=== PATIENT | female | born 1950 | race Two or more races ===

== ENCOUNTER 2019-03-27 21:42 | Emergency (ER) | payer OTHER ==
[~2019-03-27] VITALS: Ht 165.1 cm; Wt 96.6 kg
[2019-03-27] MEDS ORDERED: SINGULAIR10 MG (21:51)
[2019-03-27] MEDS ORDERED: ALBUTEROL2.5 MG/3 M (21:51)
[2019-03-28] MEDS ORDERED: AMOX1TAB5 PO (02:52)
[2019-03-28] MEDS ORDERED: CLARITIN10 MG PO (02:52)
[2019-03-28] MEDS ORDERED: TUSNEL LIQUID178 ML PO (02:52)
[2019-03-28] MEDS ORDERED: MEDROLPACK PO (02:52)
== END 2019-03-28 03:00 | disposition home or self-care (01) ==
LOC: ER 21:42
DX: J45.901 Unspecified asthma with (acute) exacerbation (principal)

== ENCOUNTER 2021-06-05 09:00 | Outpatient (CLI) | payer OTHER ==
[~2021-06-05 09:00] MED LIST: ALBUTEROL2.5 MG/3 M; AMOX1TAB5 PO; CLARITIN10 MG PO; MEDROLPACK PO; SINGULAIR10 MG; TUSNEL LIQUID178 ML PO
== END 2021-06-05 09:06 | disposition home or self-care (01) ==
LOC: RX STUDY 09:00
PROVIDERS: ATTEND Internal Medicine Gastroenterology
DX: K31.89 Other diseases of stomach and duodenum (principal); K76.0 Fatty (change of) liver, not elsewhere classified; K31.84 Gastroparesis; R07.2 Precordial pain

== ENCOUNTER 2021-08-05 20:27 | Emergency (ER) | payer OTHER ==
[~2021-08-05] VITALS: Ht 165.1 cm; Wt 88.0 kg
== END 2021-08-06 04:53 ==
LOC: ER 20:27
DX: J45.901 Unspecified asthma with (acute) exacerbation (principal); Z20.822 Contact with and (suspected) exposure to COVID-19

== ENCOUNTER 2021-11-24 21:36 | Emergency (ER) | payer OTHER ==
[~2021-11-24] VITALS: Ht 165.1 cm; Wt 89.4 kg
== END 2021-11-24 23:38 | disposition home or self-care (01) ==
LOC: ER 21:36
DX: J45.901 Unspecified asthma with (acute) exacerbation (principal)

== ENCOUNTER 2022-05-03 11:31 | Emergency (ER) | payer OTHER ==
[~2022-05-03] VITALS: Ht 167.6 cm; Wt 89.4 kg
== END 2022-05-03 17:57 | disposition home or self-care (01) ==
LOC: ER 11:31
DX: K52.9 Noninfective gastroenteritis and colitis, unspecified (principal); K29.70 Gastritis, unspecified, without bleeding; K31.84 Gastroparesis

== ENCOUNTER 2022-05-29 07:03 | Outpatient (CLI) | payer OTHER | END 2022-05-29 07:04 | disposition home or self-care (01) | LOC: NUCLEAR 07:03 | PROVIDERS: ATTEND Specialist | DX: I70.0 Atherosclerosis of aorta (principal); I25.9 Chronic ischemic heart disease, unspecified; E78.5 Hyperlipidemia, unspecified | CPT/HCPCS: 78452; 93017; A9500 ==

== ENCOUNTER 2022-05-29 07:17 | Outpatient (CLI) | payer OTHER | END 2022-05-29 07:23 | disposition home or self-care (01) | LOC: LAB 07:17 | DX: U07.1 COVID-19 (principal); B34.1 Enterovirus infection, unspecified ==

== ENCOUNTER 2022-08-22 06:46 | Emergency (ER) | payer OTHER ==
[~2022-08-22] VITALS: Ht 165.1 cm; Wt 85.7 kg
[2022-08-22] MEDS ORDERED: ACIPHEX20 MG (06:56)
== END 2022-08-22 14:52 | disposition home or self-care (01) ==
LOC: ER 06:46
DX: K31.84 Gastroparesis (principal); R10.84 Generalized abdominal pain; Z20.822 Contact with and (suspected) exposure to COVID-19

== ENCOUNTER → 2022-10-16 | Outpatient (CLI) | payer OTHER ==
[~2022-10-16] MED LIST changes: +ACIPHEX20 MG
== END | disposition home or self-care (01) ==
LOC: SONOGRAMA 07:33
PROVIDERS: ATTEND Internal Medicine Gastroenterology
DX: K57.30 Diverticulosis of large intestine without perforation or abscess without bleeding (principal); K64.0 First degree hemorrhoids; K29.70 Gastritis, unspecified, without bleeding; R16.0 Hepatomegaly, not elsewhere classified; K76.0 Fatty (change of) liver, not elsewhere classified; E66.01 Morbid (severe) obesity due to excess calories; R11.0 Nausea; R10.30 Lower abdominal pain, unspecified

== ENCOUNTER 2024-05-11 04:10 | Day surgery (SDC) | payer OTHER ==
[2024-05-05 07:55] VITALS: BP 108/76
[2024-05-05 08:34] LABS: HEMATOCRIT 42.3 % (36.0-45.00); HEMOGLOBIN 13.8 g/dL (12.0-15.00); MEAN CELL VOLUME 88.8 fL (80.00-100.00); MEAN CORPUSCULAR HEMOGLOBIN 28.9 pg (27.00-32.0); MEAN CORPUSCULAR HGB CONC 32.5 g/dl (32.0-36.0); PLATELET COUNT 135 K/uL (150-450); RED BLOOD COUNT 4.76 M/uL (4.00-6.00); RED CELL DISTRIBUTION WIDTH 14.1 % (11.5-14.5)
[2024-05-05 08:41] LABS: PH,URINE 5.5 (5.0-8.0); URINE APPEARANCE Clear; URINE BILIRRUBIN Negative (NEGATIVE); URINE BLOOD Negative; URINE COLOR Yellow; URINE GLUCOSE Negative (NEGATIVE); URINE KETONE Negative (NEGATIVE); URINE LEUKOCYTE Negative; URINE NITRATE Negative; URINE PROTEIN Negative (NEGATIVE)
[2024-05-05 08:45] LABS: URINE BACTERIA 653.5 uL (0.0-1933); URINE RBC 9.7 uL (0.0-20.8); URINE WBC 4.1 uL (0.0-23.2)
[2024-05-05 08:56] LABS: PARTIAL THROMBOPLASTIN TIME 27.1 SECONDS (22.0-34.0); PROTHROMBIN TIME 10.9 SECONDS (9.0-11.5)
[2024-05-05 09:27] LABS: ALBUMIN 3.7 gm/dL (3.4-5.0); BILIRUBIN TOTAL 0.35 mg/dL (0.3-1.2); CALCIUM 9.6 mg/dL (8.5-10.1); CREATININE SERUM 0.78 mg/dL (0.55-1.02); GFR 72.6; GLOBULINA 3.3 G/DL (2.4-3.5); POTASSIUM 4.46 mEq/L (3.5-5.1)
[2024-05-05 09:30] LABS: URINE CAST 0.14 uL (0.0-1.40)
[~2024-05-11] VITALS: Ht 165.1 cm; Wt 86.2 kg
[~2024-05-11 04:10] MED LIST changes: +ACIPHEX20 MG PO; +BREO ELLIPTA I1 EACH IH; +HORIZANT300 MG PO; +MYRBETRIQ50 MG PO; +THEOPHYLLINE A300 M1 PO; +ZOFRAN8 MG PO
[2024-05-11] MEDS ORDERED: CEFAZOLIN SODIUM 1,000 MG VIAL IV ONE (07:45)
[2024-05-11] MEDS ORDERED: POVIDONE-IODINE 118 ML BOTT TOP ONE (07:45)
[2024-05-11] MEDS ORDERED: NAPROXEN500 MG PO (09:19)
[2024-05-11] MEDS ORDERED: MONODOX100 MG PO (09:19)
== END 2024-05-11 12:00 | disposition home or self-care (01) ==
LOC: CIR.AMB 04:10
PROVIDERS: ATTEND Obstetrics & Gynecology
DX: D25.0 Submucous leiomyoma of uterus (principal); N95.0 Postmenopausal bleeding; N84.0 Polyp of corpus uteri; J45.909 Unspecified asthma, uncomplicated

== ENCOUNTER 2024-07-14 07:25 | Inpatient (IN) | payer OTHER ==
[~2024-07-14] VITALS: Ht 165.1 cm; Wt 86.2 kg
[2024-07-14 07:53] VITALS: BP 123/80
[2024-07-14 09:30] LABS: URINE APPEARANCE Clear; URINE BILIRRUBIN Negative (NEGATIVE); URINE BLOOD Small; URINE COLOR Yellow; URINE GLUCOSE Negative (NEGATIVE); URINE KETONE Negative (NEGATIVE); URINE LEUKOCYTE Trace; URINE NITRATE Negative; URINE PROTEIN Negative (NEGATIVE); URINE UROBILINOGEN 0.2 E.U./dl
[2024-07-14 09:35] LABS: URINE BACTERIA 588.6 uL (0.0-1933); URINE EPITHELIAL CELLS 31.5 uL (0.0-38.8); URINE RBC 5.1 uL (0.0-20.8); URINE WBC 34.8 uL (0.0-23.2)
[2024-07-14 09:52] LABS: HEMATOCRIT 43.5 % (36.0-45.00); HEMOGLOBIN 14.8 g/dL (12.0-15.00); MEAN CELL VOLUME 86.3 fL (80.00-100.00); MEAN CORPUSCULAR HEMOGLOBIN 29.4 pg (27.00-32.0); PLATELET COUNT 145 K/uL (150-450); RED BLOOD COUNT 5.04 M/uL (4.00-6.00); RED CELL DISTRIBUTION WIDTH 14.1 % (11.5-14.5)
[2024-07-14 09:53] LABS: INR 1.03; PARTIAL THROMBOPLASTIN TIME 27.1 SECONDS (22.0-34.0); PROTHROMBIN TIME 11.2 SECONDS (9.0-11.5)
[2024-07-14 10:02] LABS: URINE CAST 0.58 uL (0.0-1.40)
[2024-07-14 11:05] LABS: ALBUMIN 3.9 gm/dL (3.4-5.0); BILIRUBIN TOTAL 0.42 mg/dL (0.3-1.2); CALCIUM 9.3 mg/dL (8.5-10.1); CREATININE SERUM 0.83 mg/dL (0.55-1.02); GFR 67.38; GLOBULINA 3.6 G/DL (2.4-3.5); POTASSIUM 4.07 mEq/L (3.5-5.1); TOTAL PROTEIN 7.5 gm/dL (6.4-8.2)
[2024-07-20] MEDS ORDERED: METRONIDAZOLE/SODIUM CHLORIDE 500 MG/100 ML PIGGYBACK IV ONE (07:45)
[2024-07-20] MEDS ORDERED: CEFOXITIN SODIUM 2,000 MG VIAL IV ONE (07:45)
[2024-07-20] MEDS ORDERED: POVIDONE-IODINE 118 ML BOTT TOP ONE (08:45)
[2024-07-20] MEDS ORDERED: VISTASEAL DUAL APPICATOR 1 EACH APPL TOP ONE (10:42)
[2024-07-20] MEDS ORDERED: THROMBIN,HU/FIBRINOGEN/CALCIUM 10 ML SYRINGE TOP ONE (10:42)
[2024-07-20] MEDS ORDERED: RINGERS SOLUTION,LACTATED 1,000 ML IV SCH (11:30)
[2024-07-20] MEDS ORDERED: ONDANSETRON HCL 2 MG/ML VIAL IV PRN (11:30)
[2024-07-20] MEDS ORDERED: MORPHINE SULFATE 4 MG/ML CARTRIDGE IV PRN (11:30)
[2024-07-20] MEDS ORDERED: KETOROLAC TROMETHAMINE 30 MG VIAL IV PRN (11:45)
[2024-07-20] MEDS ORDERED: SIMETHICONE 125 MG CAPSULE PO SCH (13:00)
[2024-07-20] MEDS ORDERED: MORPHINE SULFATE 4 MG/ML VIAL IV ONE (13:15)
[2024-07-20 17:02] LABS: EOS # 0.02 (0.04-0.54); EOS % 0.2 % (0.7-7.0); HEMATOCRIT 41.4 % (34.1-44.9); HEMOGLOBIN 13.4 g/dL (11.2-15.7); LYMPH # 1.58 (1.18-3.74); LYMPH % 14.6 % (19.3-53.1); MEAN CORPUSCULAR HEMOGLOBIN 28.2 pg (25.6-32.2); MONO # 0.68 (0.24-0.82); MONO % 6.3 % (4.7-12.5); NEUT # 8.48 (1.56-6.13); NEUT % 78.6 % (34.0-71.1); PLATELET COUNT 152 K/uL (163-369); RED BLOOD COUNT 4.76 M/uL (3.93-5.22); RED CELL DISTRIBUTION WIDTH 13.9 % (11.6-14.4)
[2024-07-20 17:31] VITALS: BP 112/72
[2024-07-20 20:00] VITALS: BP 90/50
[2024-07-20] MEDS ORDERED: FAMOTIDINE/PF 20 MG/2 ML VIAL IV SCH (21:00)
[2024-07-21 03:04] VITALS: BP 99/60
[2024-07-21] MEDS ORDERED: THEOPHYLLINE ANHYDROUS 300 MG CAP.SR.24H PO SCH (09:00)
[2024-07-21] MEDS ORDERED: TRAM1TAB98 PO (09:16)
[2024-07-21] MEDS ORDERED: NAPROXEN500 MG PO (09:17)
[2024-07-21] MEDS ORDERED: FAMOTIDINE20 MG PO (09:18)
[2024-07-21 09:44] VITALS: BP 108/62
== END 2024-07-21 10:02 | disposition home or self-care (01) | DRG 743 ==
LOC: OB/GYN 07-20 05:45 → O/R 07-20 05:45 → SURH 07-20 08:15 → OB/GYN 07-20 14:20 → SURH 07-20 16:30 → OB/GYN 07-21 10:02
PROVIDERS: ADMIT Obstetrics & Gynecology; ATTEND Obstetrics & Gynecology
PROC: 0UT7FZZ Resection of Bilateral Fallopian Tubes, Via Natural or Artificial Opening With Percutaneous Endoscopic Assistance (ICD-10-PCS; 2024-07-20)
PROC: 0UT2FZZ Resection of Bilateral Ovaries, Via Natural or Artificial Opening With Percutaneous Endoscopic Assistance (ICD-10-PCS; 2024-07-20)
PROC: 0TJB8ZZ Inspection of Bladder, Via Natural or Artificial Opening Endoscopic (ICD-10-PCS; 2024-07-20)
PROC: 0UT9FZZ Resection of Uterus, Via Natural or Artificial Opening With Percutaneous Endoscopic Assistance (ICD-10-PCS; principal; 2024-07-20 16:30)
DX: N80.03 Adenomyosis of the uterus (principal); D36.0 Benign neoplasm of lymph nodes

== ENCOUNTER → 2024-07-14 | Emergency (ER) | payer OTHER ==
[~2024-07-14] VITALS: Ht 165.1 cm; Wt 85.3 kg
[~2024-07-14] MED LIST changes: +MONODOX100 MG PO; +NAPROXEN500 MG PO
== END | disposition home or self-care (01) ==
LOC: ER 09:32
DX: R55 Syncope and collapse (principal)

== ENCOUNTER 2024-12-24 08:28 | Inpatient (IN) | payer OTHER ==
[~2024-12-24] VITALS: Ht 167.6 cm; Wt 86.2 kg
[~2024-12-24 08:28] MED LIST changes: +FAMOTIDINE20 MG PO; +TRAM1TAB98 PO
[2024-12-24] MEDS ORDERED: THEO-24400 MG (08:37)
[2024-12-24] MEDS ORDERED: VITAMINA D3 (08:38)
[2024-12-24] MEDS ORDERED: MELOXICAM7.5 MG (08:38)
[2024-12-24] MEDS ORDERED: VITAMINA B12 (08:38)
--- NOTE | 2024-12-24 08:42 | NUR ---
SE RECIBE PACIENTE ALERTA Y ORIENTADA X 3 ESFERAS LA CUAL INDICA QUE PRESENTA FIEBRE, DOLOR DE GARGANTA, MILLIE Y TOS CON ESPUTO DESDE IRAIS.
[2024-12-24] MEDS ORDERED: METHYLPREDNISOLONE SOD SUCC 125 MG VIAL IV STA (09:08)
[2024-12-24] MEDS ORDERED: ONDANSETRON HCL 2 MG/ML VIAL IV STA (09:12)
[2024-12-24] MEDS ORDERED: ONDANSETRON HCL 2 MG/ML VIAL ONE (09:14)
[2024-12-24] MEDS ORDERED: METHYLPREDNISOLONE SOD SUCC 40 MG VIAL ONE ×2 (09:14→22:14)
[2024-12-24] MEDS ORDERED: ALBUTEROL SULFATE 3 ML/2.5 MG AMPUL.NEB IH SCH ×2 (09:15→10:00)
--- NOTE | 2024-12-24 09:41 | NUR ---
SE EDUCA PACIENTE SOBRE EL [place] MEDICO Y ESTA REFIERE ENTENDER. SE CANALIZA Y SE ADMINISTRA MEDICAMENTOS RUBI ORDEN MEDICA. SE KIMBERLY [facility] Y SE ENVIAN. SE ENTREGA ENVASE DE U/A. PENDIENTE A PLACA
[2024-12-24 10:08] LABS: BASO % 0.2 % (0.1-1.2); EOS # 0.59 (0.04-0.54); EOS % 9.6 % (0.7-7.0); LYMPH # 1.76 (1.18-3.74); LYMPH % 28.6 % (19.3-53.1); MEAN PLATELET VOLUME 11.90 fl (9.4-12.4); MONO # 0.54 (0.24-0.82); MONO % 8.8 % (4.7-12.5); NEUT # 3.25 (1.56-6.13); NEUT % 52.6 % (34.0-71.1); RED CELL DISTRIBUTION WIDTH 13.3 % (11.6-14.4)
[2024-12-24 10:12] LABS: URINE APPEARANCE Cloudy; URINE BILIRRUBIN Negative (NEGATIVE); URINE BLOOD Small; URINE COLOR Yellow; URINE GLUCOSE Negative (NEGATIVE); URINE KETONE Negative (NEGATIVE); URINE LEUKOCYTE Small; URINE NITRATE Negative; URINE PROTEIN Trace (NEGATIVE); URINE UROBILINOGEN 0.2 E.U./dl
[2024-12-24 10:16] LABS: URINE BACTERIA 1108.8 uL (0.0-1933); URINE EPITHELIAL CELLS 97.9 uL (0.0-38.8); URINE RBC 18.9 uL (0.0-20.8); URINE WBC 169.6 uL (0.0-23.2)
[2024-12-24 10:35] LABS: COVID-19 AG NEGATIVE (NEGATIVE)
[2024-12-24 10:38] LABS: URINE CAST 0.43 uL (0.0-1.40); URINE MUCUS SCANT
[2024-12-24] MEDS ORDERED: ALBUTEROL SULFATE 3 ML/2.5 MG AMPUL.NEB IH ONE ×3 (10:39→13:24)
[2024-12-24 10:50] LABS: ALT/SGPT 25.0 U/L (12-78); AST/SGOT 22.0 U/L (15-37); BILIRUBIN TOTAL 0.44 mg/dL (0.3-1.2); BUN CREA RATIO 27.0 (7.0-25.0); CREATININE SERUM 0.74 mg/dL (0.55-1.02); GFR 76.93; GLOBULINA 3.3 G/DL (2.4-3.5); GLUCOSE FASTING 91.0 mg/dL (65-100); OSMOLALITY SERUM 287.0 MOSM/KG (275-295)
[2024-12-24] MEDS ORDERED: IPRATROPIUM BROMIDE 0.5 MG/2.5 ML AMPUL.NEB IH STA (12:28)
[2024-12-24] MEDS ORDERED: IPRATROPIUM BROMIDE 0.5 MG/2.5 ML AMPUL.NEB IH ONE (12:33)
[2024-12-24] MEDS ORDERED: MAGNESIUM SULFATE IN WATER 50 ML IV ONE ×2 (13:45→19:45)
--- NOTE | 2024-12-24 13:57 | NUR ---
SE COLOCA PACIENTE EN K-9 Y SE COLOCA CANULA DE OXIGENO 3 L/MIN
[2024-12-24] MEDS ORDERED: METHYLPREDNISOLONE SOD SUCC 40 MG VIAL IV SCH (19:32)
[2024-12-24] MEDS ORDERED: GUAIFENESIN 100 MG/5 ML BLIST.PACK PO SCH (19:39)
[2024-12-24] MEDS ORDERED: 0.9 % SODIUM CHLORIDE 1,000 ML IV SCH (19:45)
[2024-12-24] MEDS ORDERED: FAMOTIDINE/PF 20 MG in 0.9 % SODIUM CHLORIDE 8 ML IV PUSH SCH (21:00)
[2024-12-24] MEDS ORDERED: IPRATROPIUM/ALBUTEROL SULFATE 3 ML AMPUL.NEB IH SCH (21:00)
[2024-12-24] MEDS ORDERED: MAGNESIUM SULFATE 50% 1,000 MG/2 ML VIAL ONE (22:14)
[2024-12-24] MEDS ORDERED: GUAIFENESIN 200 MG/10 ML BLIST.PACK PO ONE (22:15)
[2024-12-24] MEDS ORDERED: FAMOTIDINE/PF 20 MG/2 ML VIAL ONE (22:15)
[2024-12-25] MEDS ORDERED: IPRATROPIUM/ALBUTEROL SULFATE 3 ML AMPUL.NEB IH ONE (00:19)
[2024-12-25] MEDS ORDERED: METHYLPREDNISOLONE SOD SUCC 40 MG VIAL ONE (01:47)
[2024-12-25 07:27] VITALS: BP 117/77; O2SAT 98
[2024-12-25] MEDS ORDERED: LORATADINE 10 MG TABLET PO SCH (12:00)
[2024-12-25] MEDS ORDERED: MOMETASONE FUROATE 17GM SPRAY NASAL SCH (12:00)
[2024-12-25] MEDS ORDERED: CEFTRIAXONE SODIUM 2,000 MG VIAL IV NR (14:00)
[2024-12-25 15:55] VITALS: BP 127/72; O2SAT 96
[2024-12-25] MEDS ORDERED: AZITHROMYCIN 500 MG VIAL IV ONE (16:29)
[2024-12-25] MEDS ORDERED: AZITHROMYCIN 500 MG VIAL IV SCH (17:00)
[2024-12-25] MEDS ORDERED: TEMAZEPAM 15 MG CAPSULE PO SCH (21:00)
[2024-12-26 00:24] VITALS: BP 99/68; O2SAT 96
[2024-12-26 06:44] LABS: BASO % 0.1 % (0.1-1.2); EOS # 0.00 (0.04-0.54); EOS % 0.0 % (0.7-7.0); LYMPH # 0.91 (1.18-3.74); LYMPH % 7.8 % (19.3-53.1); MEAN PLATELET VOLUME 12.40 fl (9.4-12.4); MONO # 0.26 (0.24-0.82); MONO % 2.2 % (4.7-12.5); NEUT # 10.37 (1.56-6.13); NEUT % 89.4 % (34.0-71.1); RED CELL DISTRIBUTION WIDTH 13.7 % (11.6-14.4)
[2024-12-26 07:08] LABS: ALT/SGPT 23 U/L (12-78); AST/SGOT 19 U/L (15-37); BILIRUBIN TOTAL 0.25 mg/dL (0.3-1.2); BUN CREA RATIO 30 (7.0-25.0); CREATININE SERUM 0.80 mg/dL (0.55-1.02); GFR 70.31; GLOBULINA 2.7 G/DL (2.4-3.5); GLUCOSE FASTING 151 mg/dL (65-100); OSMOLALITY SERUM 299 MOSM/KG (275-295)
[2024-12-26 08:33] VITALS: BP 115/79; O2SAT 96
[2024-12-26] MEDS ORDERED: CEFTRIAXONE SODIUM 2,000 MG VIAL IV SCH (12:00)
[2024-12-26] MEDS ORDERED: AZITHROMYCIN 500 MG VIAL IV ONE (15:26)
[2024-12-26 15:30] VITALS: BP 111/72; O2SAT 99
[2024-12-26] MEDS ORDERED: METHYLPREDNISOLONE SOD SUCC 40 MG VIAL IV SCH (17:00)
[2024-12-26 21:55] VITALS: BP 115/74
[2024-12-27 00:43] VITALS: BP 113/67; O2SAT 99
[2024-12-27 08:00] VITALS: BP 132/85
== END 2024-12-27 11:46 | disposition home or self-care (01) | DRG 203 ==
LOC: ER 08:28 → SEC-K 19:55 → SURG 19:55 → MEDI 12-26 15:53
PROVIDERS: Internal Medicine Infectious Disease; Physician Assistant Medical; ADMIT Internal Medicine; ATTEND Internal Medicine
PROC: 3E0F7GC Introduction of Other Therapeutic Substance into Respiratory Tract, Via Natural or Artificial Opening (ICD-10-PCS; principal; 2024-12-24)
PROC: 4A033R1 Measurement of Arterial Saturation, Peripheral, Percutaneous Approach (ICD-10-PCS; 2024-12-24)
DX: J45.901 Unspecified asthma with (acute) exacerbation (principal); R06.02 Shortness of breath; R05.9 Cough, unspecified